=== PATIENT | male | born 1935 | race Caucasian/White ===

== ENCOUNTER 2017-04-20 21:14 | Observation (INO) | payer OTHER, MEDICARE ==
[~2017-04-20] VITALS: Ht 182.9 cm; Wt 92.5 kg
[2017-04-20 22:46] LABS: BASOPHIL (%) 0.2 % (0-1); EOSINOPHIL (%) 2.7 % (0-5); EOSINOPHIL COUNT 0.2 K/uL (0-0.3); HEMATOCRIT 31.4 % (38.0-50.0); HEMOGLOBIN 10.1 G/DL (12.5-16.6); IMMATURE GRANULOCYTE (%) 0.4 % (0.0-0.7); LYMPHOCYTE (%) 28.3 % (15-42); LYMPHOCYTE COUNT 1.6 K/uL (1.0-2.8); MCH 28.9 PG (29.0-34.0); MCHC 32.2 G/DL (30.0-36.0); MCV 89.7 FL (86-99); MONOCYTE (%) 3.9 % (3-12); MONOCYTE COUNT 0.2 K/uL (0-0.8); NEUTROPHIL (%) 64.5 % (45-76); NEUTROPHIL COUNT 3.7 K/uL (1.8-6.4); PLATELET COUNT 259 K/uL (156-360); WHITE BLOOD COUNT 5.7 K/uL (4.1-10.2)
[2017-04-20 22:53] LABS: INTER. NORMALIZED RATIO 1.1
[2017-04-20 22:56] LABS: PTT 26.4 SEC (25-37)
[2017-04-20 23:07] LABS: TROP-I INTERPRETATION NEGATIVE; TROPONIN-I < 0.01 ng/mL (0.0-0.30)
[2017-04-20 23:08] LABS: CHLORIDE 100 mEq/L (99-109); SODIUM 139 mEq/L (136-147)
[2017-04-20 23:09] LABS: GLUCOSE 121 mg/dL (70-99)
[2017-04-20 23:13] LABS: CREATININE 0.8 mg/dL (0.6-1.3); GFR ESTIMATE (CALCULATED) > 59 mL/min/ (58.99-99999)
[2017-04-20 23:14] LABS: UREA NITROGEN (BUN) 10 mg/dL (9-23)
[2017-04-21 00:11] LABS: HDL CHOLESTEROL 30 MG/DL (Desirable>=40); LDL CHOLESTEROL 50 mg/dL (Desirable<100); NON-HDL CHOLESTEROL 69 mg/dL (Desirable<160); TOTAL CHOLESTEROL 99 mg/dL (Desirable<200); TRIGLYCERIDES 97 MG/DL (Normal: <150)
[2017-04-21] MEDS ORDERED: AMOX TR-K CLV1 EAC4 PO (01:18)
[2017-04-21] MEDS ORDERED: PROAIR HFA8.5 GM IH (01:19)
[2017-04-21] MEDS ORDERED: METHADONE10 MG PO (01:20)
[2017-04-21] MEDS ORDERED: CLOPIDOGREL75 MG PO (01:21)
[2017-04-21] MEDS ORDERED: METHOTREXA25 MG/1 M5 SQ (01:29)
[2017-04-21] MEDS ORDERED: HUMULIN R100 UNITS/ SC (01:30)
[2017-04-21] MEDS ORDERED: PANTOPRAZOLE SO40 MG PO (01:31)
[2017-04-21] MEDS ORDERED: OLMESARTAN MEDO20 MG PO (01:31)
[2017-04-21] MEDS ORDERED: ROSUVASTATIN CA10 MG PO (01:32)
[2017-04-21] MEDS ORDERED: LEVOTHYROXINE100 MCG PO (01:33)
[2017-04-21] MEDS ORDERED: SYNTHROID100 MCG PO (01:35)
[2017-04-21] MEDS ORDERED: FOLIC ACID1 MG PO (01:36)
[2017-04-21] MEDS ORDERED: TAMSULOSIN HCL0.4 MG PO (01:37)
[2017-04-21] MEDS ORDERED: EZETIMIBE10 MG PO (01:39)
[2017-04-21] MEDS ORDERED: METFORMIN HCL500 MG PO (01:39)
[2017-04-21] MEDS ORDERED: TESTOSTERO200 MG/12 IM (01:40)
[2017-04-21] MEDS ORDERED: HUMULIN N100 UNITS/ SC (01:42)
[2017-04-21] MEDS ORDERED: COLCRYS0.6 MG PO (01:43)
[2017-04-21] MEDS ORDERED: ONE DAILY FOR1 EAC2 PO (01:43)
[2017-04-21] MEDS ORDERED: DHEA50 M1 PO (01:44)
[2017-04-21] MEDS ORDERED: ADVAIR 500/501 DISK IH (01:45)
[2017-04-21 04:54] LABS: HEMATOCRIT 30.6 % (38.0-50.0); HEMOGLOBIN 10.1 G/DL (12.5-16.6); MCH 29.6 PG (29.0-34.0); MCV 89.7 FL (86-99); PLATELET COUNT 234 K/uL (156-360); RBC DIS.WIDTH-CV 18.9 % (11.8-14.6); RBC DIS.WIDTH-SD 62.4 % (39-53); RED BLOOD COUNT 3.41 M/uL (4.00-5.50)
[2017-04-21 05:33] VITALS: BP 154/81
[2017-04-21 09:09] VITALS: BP 155/75
[2017-04-21 10:03] LABS: HEMOGLOBIN A1c (GLYCOHEMOGLOB) 7.7 % (Below 5.7)
[2017-04-21 16:19] VITALS: BP 158/88
[2017-04-21 19:30] VITALS: BP 138/78
[2017-04-21 23:18] VITALS: BP 147/79
[2017-04-22 03:27] VITALS: BP 122/72
[2017-04-22 08:30] VITALS: BP 125/73
[2017-04-22 09:02] LABS: BASOPHIL (%) 0.1 % (0-1); EOSINOPHIL (%) 3.1 % (0-5); EOSINOPHIL COUNT 0.2 K/uL (0-0.3); HEMATOCRIT 33.8 % (38.0-50.0); HEMOGLOBIN 10.9 G/DL (12.5-16.6); IMMATURE GRANULOCYTE (%) 0.4 % (0.0-0.7); LYMPHOCYTE (%) 34.8 % (15-42); LYMPHOCYTE COUNT 2.3 K/uL (1.0-2.8); MCH 29.1 PG (29.0-34.0); MCHC 32.2 G/DL (30.0-36.0); MCV 90.1 FL (86-99); MONOCYTE (%) 4.6 % (3-12); MONOCYTE COUNT 0.3 K/uL (0-0.8); NEUTROPHIL COUNT 3.8 K/uL (1.8-6.4); PLATELET COUNT 279 K/uL (156-360); RBC DIS.WIDTH-CV 19.5 % (11.8-14.6); RBC DIS.WIDTH-SD 63.5 % (39-53); RED BLOOD COUNT 3.75 M/uL (4.00-5.50); WHITE BLOOD COUNT 6.7 K/uL (4.1-10.2)
[2017-04-22 09:24] LABS: CHLORIDE 101 MEQ/L (99-109); CREATININE 0.8 MG/DL (0.6-1.3); GFR ESTIMATE (CALCULATED) > 59 mL/min/ (58.99-99999); GLUCOSE 71 mg/dL (70-99); SODIUM 136 MEQ/L (136-147); UREA NITROGEN (BUN) 10 mg/dL (9-23)
[2017-04-22 12:30] VITALS: BP 150/85
[2017-04-22] MEDS ORDERED: ELIQUIS5 MG PO (14:28)
== END 2017-04-22 16:25 | disposition home or self-care (01) ==
LOC: EME 21:14 → 5WEST 04-21 04:07 → EDOF 04-21 04:07 → ENRESERV 04-21 04:27 → 5WEST 04-21 05:39
PROVIDERS: Emergency Medicine; Hospitalist; Student in an Organized Health Care Education/Training Program
DX: G45.9 Transient cerebral ischemic attack, unspecified (principal); I48.1 Persistent atrial fibrillation; E11.9 Type 2 diabetes mellitus without complications; I10 Essential (primary) hypertension; E78.5 Hyperlipidemia, unspecified; E03.9 Hypothyroidism, unspecified; M19.90 Unspecified osteoarthritis, unspecified site; K21.9 Gastro-esophageal reflux disease without esophagitis; I27.20 Pulmonary hypertension, unspecified; I34.0 Nonrheumatic mitral (valve) insufficiency; Z98.890 Other specified postprocedural states; Z86.73 Personal history of transient ischemic attack (TIA), and cerebral infarction without residual deficits; F41.9 Anxiety disorder, unspecified; Z79.02 Long term (current) use of antithrombotics/antiplatelets; Z79.4 Long term (current) use of insulin; Z79.891 Long term (current) use of opiate analgesic; Z82.3 Family history of stroke
CPT/HCPCS: 70450; 70551; 71046; 80048; 80061; 82948; 83036; 84484; 85025; 85027; 85610; 85730; 93005; 93306; 93880; 94640; 94640 76; 99281; 99285; G0378; G8978 GP CJ; G8979 GP CH; G8987 GO CI; G8988 GO CH; J1815; J2060